=== PATIENT | female | born 1940 | race Caucasian/White ===

== ENCOUNTER 2021-10-11 07:57 | Emergency (ER) | payer MEDICARE, OTHER ==
[~2021-10-11] VITALS: Ht 162.6 cm; Wt 65.0 kg
[~2021-10-11 07:57] MED LIST: APIX5TAB PO; ATOR20TA58 PO; DILT120C99 PO; DOCU-109 PO; Diclofenac Sodium TP; FAMO20TA5 PO; FERR325T72 PO; LOSA25TA54 PO; OXYC1TAB15 PO
--- NOTE | 2021-10-11 08:54 | RAD ---
EXAMINATION: US BILATERAL LOWEREXTREMITY VENOUS DOPPLER (LOWER EXTREMITY VENOUS ULTRASOUND) CLINICAL HISTORY: Left greater than right lower extremity edema TECHNIQUE: Sonographic grayscale images obtained of the bilateral lower extremity deep venous systems with color flow Doppler, compression, and augmentation techniques as indicated. Images obtained and stored in a permanent archive. COMPARISON: None FINDINGS: RIGHT: No evidence of absent flow or incompressibility within the common femoral vein, femoral vein, or popl iteal vein. Visualized calf veins appear patent on limited evaluation. LEFT: No evidence of absent flow or incompressibility within the common femoral vein, femoral vein, or popl iteal vein. Visualized calf veins appear patent on limited evaluation. IMPRESSION: No evidence of bilateral lower extremity DVT. Electronically signed by: Ramirez Duron DO (10/11/2021 8:52 AM) [id number]
--- NOTE | 2021-10-11 09:26 | PHYS DOC ---
Past Medical History Past Medical History: No Pertinent History Past Surgical History: Hip Replacement, Other Additional Past Surgical Histo: mastectomy Smoking Status: Never Smoker Alcohol Use: None Drug Use: None General Adult EDM: Chief Complaint: LOWER EXT PAIN HPI: HPI: Patient is a 81 year old female history of dementia, atrial fibrillation on Eliquis, stroke with left-sided hemiplegia who presents with lower extremity edema. States that she has noticed her left leg has been swelling much more than her right. But does note that both legs have been swelling. Initially when asked if she has chest pain she states she was unsure, but later states that maybe she had some chest pain last night. Was unable to describe it. Denies shortness of breath. Denies orthopnea. Denies fever/chills. Denies cough, runny nose, sore throat. Review of Systems: Review of Systems: Constitutional: Denies fever or chills. [] Eyes: Denies change in visual acuity. [] HENT: Denies nasal congestion or sore throat. [] Respiratory: Denies cough or shortness of breath. [] Cardiovascular: Reports? Chest pain, and bilateral lower extremity edema L>R GI: Denies abdominal pain, nausea, vomiting, bloody stools or diarrhea. [] : Denies dysuria. [] Musculoskeletal: Denies back pain or joint pain. [] Integument: Denies rash. [] Neurologic: Denies headache, focal weakness or sensory changes. [] Endocrine: Denies polyuria or polydipsia. [] Lymphatic: Denies swollen glands. [] Psychiatric: Denies depression or anxiety. [] Heart Score: C/O Chest Pain: Yes HEART Score for Chest Pain: HEART Score for Chest Pain Response (Comments) Value History Slighlty/Non-Suspicious 0 ECG Normal 0 Age > 65 2 Risk Factors 1 or 2 Risk Factors 1 Total 3 Risk Scores: Score 0 - 3: 2.5% MACE over next 6 weeks - Discharge Home Score 4 - 6: 20.3% MACE over next 6 weeks - Admit for Clinical Observation Allergies: Allergies: Allergies Coded Allergies Type Severity Reaction Last Updated Verified No Known Drug Allergies 08/03/21 No Physical Exam: PE: Constitutional: Well developed, well nourished, no acute distress, non-toxic appearance. [] HENT: Normocephalic, atraumatic, bilateral external ears normal, oropharynx moist, no oral exudates, nose normal. [] Eyes: PERRLA, EOMI, conjunctiva normal, no discharge. [] Neck: Normal range of motion, no tenderness, supple, no stridor. [] Cardiovascular:Heart rate regular rhythm, no murmur [] Lungs & Thorax: Bilateral breath sounds clear to auscultation. No crackles. [] Abdomen: Bowel sounds normal, soft, no tenderness, no masses, no pulsatile masses. [] Skin: Warm, dry, no erythema, no rash. [] Back: No tenderness, no CVA tenderness. [] Extremities: Bilateral lower extremity edema, pitting, left greater than right. Extends to the level of the knee. Neurologic: Alert and oriented to person and place, difficulty with recalling details, bilateral lower extremity weakness L > R (at baseline) Current Patient Data: Vital Signs: Vital Signs Date Time Temp Pulse Resp B/P (MAP) Pulse Ox O2 Delivery O2 Flow Rate FiO2 10/11/21 08:10 98.1 60 15 162/72 (102) 99 Room Air 98.1 EKG: EKG: Sinus rhythm. Rate 64. Left axis deviation. QTc 460. KS and QRS intervals normal. No acute ischemic changes. [] Radiology/Procedures: Radiology/Procedures: [] Impression: [facility] [address] [place] [address] IMAGING REPORT Signed PATIENT: SERGIO BAUTISTA AACCOUNT: [id number] : 1940 LOCATION: ER AGE: 81 SEX: F EXAM STATUS: REG ER ORD. PHYSICIAN: RENATA GEORGE MD REASON: L > R leg swelling PROCEDURE: VENOUS LOWER EXT BILATERAL EXAMINATION: US BILATERAL LOWEREXTREMITY VENOUS DOPPLER (LOWER EXTREMITY VENOUS ULTRASOUND) CLINICAL HISTORY: Left greater than right lower extremity edema TECHNIQUE: Sonographic grayscale images obtained of the bilateral lower extremity deep venous systems with color flow Doppler, compression, and augmentation techniques as indicated. Images obtained and stored in a permanent archive. COMPARISON: None FINDINGS: RIGHT: No evidence of absent flow or incompressibility within the common femoral vein, femoral vein, or popliteal vein. Visualized calf veins appear patent on limited evaluation. LEFT: No evidence of absent flow or incompressibility within the common femoral vein, femoral vein, or popliteal vein. Visualized calf veins appear patent on limited evaluation. IMPRESSION: No evidence of bilateral lower extremity DVT. Electronically signed by: Ramirez Yi DO (10/11/2021 8:52 AM) [id number] DICTATED and SIGNED BY: RAMIREZ YI DO DATE: 10/11/21 [id number] [facility] [address] [place] [address] IMAGING REPORT Signed PATIENT: SERGIO BAUTISTA AACCOUNT: [id number] : 1940 LOCATION: ER AGE: 81 SEX: F EXAM STATUS: REG ER ORD. PHYSICIAN: RENATA GEORGE MD REASON: lower extremity edema, chest pain PROCEDURE: CHEST AP ONLY XR CHEST 1V History: Lower extremity edema, chest pain Comparison: 08/03/2021 Technique: Portable AP radiograph of the chest. Findings: Lungs are adequately inflated. No airspace consolidation, pleural effusion or pneumothorax. The cardiac silhouette and pulmonary vasculature are within normal limits. Tortuous aorta. Severe degenerative changes in the shoulders with high riding humeral heads compatible with rotator cuff tears. Left axillary surgical clips and right upper quadrant cholecystectomy clips. Impression: 1. No acute cardiopulmonary process. Electronically signed by: Trey Siegel MD (10/11/2021 10:06 AM) [id number] DICTATED and SIGNED BY: TREY SIEGEL MD DATE: 10/11/21 [id number] 0 Course & Med Decision Making: Course & Med Decision Making Pertinent Labs and Imaging studies reviewed. (See chart for details) Patient is 81-year-old female with history of dementia, A. fib on Eliquis who presents with lower extremity edema left greater than right, and potentially now resolved chest pain although she does not recall the specifics. On arrival is afebrile, hemodynamically stable. Well-appearing on examination. Does have pitting edema to the level of the knee, with the left more prominent than right. Likely due to her left-sided hemiplegia. EKG is nonischemic. Given timing of pain a single troponin should be sufficient to rule out ACS. If troponin is negative, feel that she would be safe for outpatient follow-up of her chest pain. DVT study negative. Awaiting labs and CXR. 09 CXR clear. CBC, CMP reassuring. Awaiting trop and BNP. 1013 Trop and BNP normal. No evidence of new onset heart failure. Appears to be isolated lower extremity edema. Feel she is safe for outpatient follow-up at this time. 1036 Jose Disclaimer: Jose Disclaimer: This electronic medical record was generated, in whole or in part, using a voice recognition dictation system. Departure Departure Impression: Primary Impression: Lower extremity edema Disposition: HOME / SELF CARE / HOMELESS Condition: STABLE Referrals: NON,STAFF (PCP) Additional Instructions: Your work-up did not show any evidence of blood clots in your legs, fluid in your lungs, heart failure. It appears to be isolated swelling in the legs. Please follow-up with your primary care doctor to discuss management of this. Usually it is with diuretics. If you develop chest pain, shortness of breath, shortness of breath with lying flat, or other new/concerning symptoms you can return to the emergency department for reevaluation at any time. RENATA GEORGE MD Oct 11, 2021 09:26
[2021-10-11 09:44] LABS: BASO % 1 % (0-3); EOS # 0.1 x10^3/uL (0.0-0.7); EOS % 2 % (0-3); HEMATOCRIT 38.4 % (36.0-47.0); HEMOGLOBIN 12.6 g/dL (12.0-15.5); LYMPH # 1.3 x10^3/uL (1.0-4.8); LYMPH % 28 % (24-48); MEAN CORPUSCULAR HEMOGLOBIN 29 pg (25-35); MEAN CORPUSCULAR HGB CONC 33 g/dL (31-37); MEAN CORPUSCULAR VOLUME 88 fL (79-100); MONO # 0.4 x10^3/uL (0.0-1.1); MONO % 8 % (0-9); NEUT % 62 % (31-73); PLATELET COUNT 254 x10^3/uL (140-400); RED BLOOD COUNT 4.36 x10^6/uL (3.50-5.40); RED CELL DISTRIBUTION WIDTH 15.1 % (11.5-14.5); WHITE BLOOD COUNT 4.8 x10^3/uL (4.0-11.0)
[2021-10-11 10:06] LABS: CREATININE 0.6 mg/dL (0.6-1.0); GFR 96.4; POTASSIUM 3.6 mmol/L (3.5-5.1)
--- NOTE | 2021-10-11 10:08 | RAD ---
XR CHEST 1V History: Lower extremity edema, chest pain Comparison: 08/03/2021 Technique: Portable AP radiograph of the chest. Findings: Lungs are adequately inflated. No airspace consolidation, pleural effusion or pneumothorax. The cardi ac silhouette and pulmonary vasculature are within normal limits. Tortuous aorta. Severe degenerative changes in the shoulders with high riding humeral heads compatible with rotator cuff tears. Left axi llary surgical clips and right upper quadrant cholecystectomy clips. Impression: 1. No acute cardiopulmonary process. Electronically signed by: Trey Mccray MD (10/11/2021 10:06 AM) [id number]
[2021-10-11 10:11] LABS: ALBUMIN 3.5 g/dL (3.4-5.0); ALBUMIN/GLOBULIN RATIO 1.1 (1.0-1.7); TOTAL BILIRUBIN 0.4 mg/dL (0.2-1.0); TOTAL PROTEIN 6.8 g/dL (6.4-8.2)
[2021-10-11 12:00] VITALS: BP 162/81
--- NOTE | 2021-10-11 13:07 | EKG ---
[facility] [address] [place] [address] Test Date: 2021-10-11 Test Time: 08:09:44 Pat Name: SERGIO BAUTISTA Department: Room: Gender: F Registered Sales Assistant: : 1940 Requested By: RENATA GEORGE Order Number: [id number] Reading MD: Danny Daley MD Measurements Intervals [place] Rate: 64 P: 267 MI: 160 QRS: -17 QRSD: 84 T: 74 QT: 446 QTc: 460 Interpretive Statements SR Electronically Signed On 10-13-2021 20:53:20 SAP BW DEVELOPER by Danny Daley MD
== END 2021-10-11 13:24 | disposition home or self-care (01) ==
LOC: ER 07:57
DX: R60.0 Localized edema (principal); F03.90 Unspecified dementia, unspecified severity, without behavioral disturbance, psychotic disturbance, mood disturbance, and anxiety; I48.91 Unspecified atrial fibrillation; Z79.01 Long term (current) use of anticoagulants
CPT/HCPCS: 36415; 71045; 80053; 83880; 84484; 85025; 93005; 93970; 99285-25

== ENCOUNTER 2021-11-17 12:18 | Emergency (ER) | payer MEDICARE, OTHER ==
[~2021-11-17] VITALS: Ht 157.5 cm; Wt 61.3 kg
--- NOTE | 2021-11-17 12:27 | PHYS DOC ---
Past Medical History Past Medical History: No Pertinent History Past Surgical History: Hip Replacement, Other Additional Past Surgical Histo: mastectomy Smoking Status: Never Smoker Alcohol Use: None Drug Use: None General Adult HPI: HPI: Patient is a 81 year old female brought in by EMS at the request of her family for evaluation of a scalp contusion after falling. The fall was reportedly unwitnessed. The patient is not supposed to ambulate, she is essentially wheelchair-bound, but she frequently forgets to call for assistance. She fell forward and hit her head. There is no reported loss of consciousness. She lives at a care facility. Her daughter reports no acute mental status changes. The patient has chronic confusion and dementia, and this is her baseline mental status here today. The patient denies any physical pain or discomfort. She denies headache, dizziness, chest pain, dyspnea, palpitations, abdominal pain, nausea or vomiting. She denies acute vision loss. She has a bruise on her left forehead. The patient takes Eliquis and has a history of atrial fibrillation. No previous known history of serious GI bleeding or intracranial hemorrhage. She does fall very frequently. The patient has bilateral knee pain, which is also unchanged for her. Her daughter wants her hips and pelvis x-rayed as well. The patient is not complaining of any hip or pelvis pain. Review of Systems: Review of Systems: Constitutional: Denies fever or chills. [] Eyes: Denies change in visual acuity. [] HENT: Denies nasal congestion or sore throat. [] Respiratory: Denies cough or shortness of breath. [] Cardiovascular: Denies chest pain. Chronic lower extremity edema, unchanged. GI: Denies abdominal pain, nausea, vomiting Musculoskeletal: Chronic bilateral knee pain, unchanged. Integument: Denies rash. Bruising of the left forehead. Neurologic: Denies headache, focal weakness or sensory changes. Chronic memory loss, unchanged. Psychiatric: Denies depression or anxiety. [] Heart Score: C/O Chest Pain: No Risk Factors: Risk Factors: DM, Current or recent (<one month) smoker, HTN, HLP, family history of CAD, obesity. Risk Scores: Score 0 - 3: 2.5% MACE over next 6 weeks - Discharge Home Score 4 - 6: 20.3% MACE over next 6 weeks - Admit for Clinical Observation Score 7 - 10: 72.7% MACE over next 6 weeks - Early Invasive Strategies Allergies: Allergies: Allergies Coded Allergies Type Severity Reaction Last Updated Verified No Known Drug Allergies 10/11/21 No Physical Exam: PE: Constitutional: Well developed, well nourished, no acute distress, non-toxic appearance. [] HENT: Normocephalic. She has a moderate sized contusion of her left frontal scalp. There is no significant hematoma or significant soft tissue swelling associated with this. No tenderness to palpation. No palpable crepitus or step-offs. TMs are clear bilaterally, no hemotympanum. No otorrhea. Nares are patent without rhinorrhea epistaxis. No facial trauma otherwise noted. Mucous membranes are moist. No oral or denture trauma. Eyes: PERRL, EOMI, conjunctiva normal, no discharge. [] Neck: Normal range of motion, no tenderness, supple, no stridor. Trachea is midline. No midline tenderness or step-offs. Cardiovascular:Heart rate regular rhythm, +2 posterior tibial and +2 radial pulses bilaterally Lungs & Thorax: Bilateral breath sounds clear to auscultation [] Abdomen: Abdomen is soft, nondistended, nontender to palpation Skin: She has a moderate sized circular contusion of her left forehead. No significant associated swelling or hematoma. No open wounds. Back: No tenderness, no CVA tenderness. [] Extremities: Pelvis is stable. No tenderness of either hip. Bilateral anterior nears are both tender. She has mild soft tissue tenderness of her mid and distal left femur. There is no shortening or deformity of the bilateral lower extremities. No calf tenderness. No palpable crepitus or step-offs. No ankle or foot tenderness. She has bilateral, symmetric lower extremity 1+ edema. No ligamentous laxity is noted of either knee. There is some painful active left knee flexion. There are no limb deformities noted. Neurologic: She is awake, alert, oriented to person, she knows she is in the hospital, she is confused about date and time, this is baseline for her. She follows all commands. No facial asymmetry is noted. She moves all 4 extremit ies equally. Generalized but symmetric bilateral lower extremity weakness, chronic for her. Speech is clear and fluent. Psychologic: Affect normal, judgement normal, mood normal. She is pleasant and cooperative EKG: EKG: [] Radiology/Procedures: Radiology/Procedures: IMAGING REPORT Signed PATIENT: SERGIO BAUTISTA AACCOUNT: [id number] : 1940 LOCATION: ER AGE: 81 SEX: F EXAM STATUS: REG ER ORD. PHYSICIAN: AJIT DELGADILLO DO REASON: fall, scalp contusion PROCEDURE: CT HEAD AND CERVICAL SPINE WO Examination: CT head and cervical spine without contrast. CT HEAD INDICATION: Reason: fall, scalp contusion / Spl. Instructions: / History: COMPARISON: None Available. Exposure: One or more of the following individualized dose reduction techniques were utilized for this examination: 1. Automated exposure control 2. Adjustment of the mA and/or kV according to patient size 3. Use of iterative reconstruction technique TECHNIQUE: 5 mm contiguous axial images were obtained from the skull base to the vertex in both bone and soft tissue algorithm. FINDINGS: No abnormal attenuation within the brain parenchyma. No evidence of acute intracranial hemorrhage. No extra-axial fluid collections. No mass effect or midline shift. Ventricular size is appropriate. Basal cisterns are patent. No fractures identified.Arceo-white differentiation is preserved.Globes and orbits are within normal limits. Paranasal sinuses and mastoid air cells are clear. CT CERVICAL SPINE INDICATION: Reason: fall, scalp contusion / Spl. Instructions: / History: COMPARISON: None Available. Technique: 2.5 mm contiguous axial images were obtained from the skull base through the cervicothoracic junction in both bone and soft tissue algorithm. Additional sagittal and coronal reconstructions were also performed. FINDINGS: Vertebral body height and alignment are maintained. Cervical lordosis is preserved. The lateral masses of C1 are aligned upon C2. No fractures identified. The bony canal is patent throughout. Moderate intervertebral disc height loss cervical spine throughout likely degenerative changes most at C6-C7 levels. The paraspinous soft tissues are unremarkable. Visualized intracranial contents are unremarkable. Lung apices are clear. IMPRESSION: 1. No acute intracranial findings. 2. No acute fracture of the cervical spine. 3. Moderate degenerative changes cervical spine. Electronically signed by: Jere Lion MD (11/17/2021 2:21 PM) [id number] DICTATED and SIGNED BY: JERE LION MD DATE: 11/17/21 [id number] 0 IMAGING REPORT Signed PATIENT: SERGIO BAUTISTA AACCOUNT: [id number] : 1940 LOCATION: ER AGE: 81 SEX: F EXAM STATUS: REG ER ORD. PHYSICIAN: AJIT DELGADILLO DO REASON: fall PROCEDURE: PELVIS AP pelvis radiograph 11/17/2021 CLINICAL HISTORY: Fall with pelvic pain. An AP digital radiograph of the pelvis and both hips was obtained. Comparison study is dated 08/03/2021. The patient is post left hip replacement. There is diffuse osteopenia of the visualized bony structures. 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 The right femoral head is eroded and the proximal right femur is significantly displaced superiorly articulating with a neoacetabulum involving the mid right ilium. These findings are unchanged. No acute pelvic bone fracture is seen. Degenerative changes are seen involving both SI joints. IMPRESSION: No acute osseous abnormality is seen. Electronically signed by: Gage Crocker MD (11/17/2021 2:26 PM) [id number] DICTATED and SIGNED BY: GAGE CROCKER MD DATE: 11/17/21 [id number] 0 IMAGING REPORT Signed PATIENT: SERGIO BAUTISTA AACCOUNT: [id number] : 1940 LOCATION: ER AGE: 81 SEX: F EXAM STATUS: REG ER ORD. PHYSICIAN: AJIT DELGADILLO DO REASON: fall PROCEDURE: KNEE BILAT 3V Bilateral 3 view knee radiographs 11/17/2021 CLINICAL HISTORY: Fall with injury to both knees. AP, oblique and crosstable lateral digital radiographs of both knees were obtained. There is diffuse osteopenia of the visualized bony structures. No fracture or dislocation of either knee is seen. Moderate to severe degenerative changes are seen involving all 3 compartments of both knees. IMPRESSION: No fracture or dislocation of either knee is seen. Electronically signed by: Gage Crocker MD (11/17/2021 2:29 PM) [id number] DICTATED and SIGNED BY: GAGE CROCKER MD DATE: 11/17/21 [id number] 0 IMAGING REPORT Signed PATIENT: SERGIO BAUTISTA AACCOUNT: [id number] : 1940 LOCATION: ER AGE: 81 SEX: F EXAM STATUS: REG ER ORD. PHYSICIAN: AJIT DELGADILLO DO REASON: fall PROCEDURE: FEMUR LEFT 2 VIEW AP and lateral left femur radiographs 11/17/2021 CLINICAL HISTORY: Left femur pain. Fall. 2 AP and 2 lateral digital radiographs of the left femur were obtained. The tala ent is post left FRIDA. There is diffuse osteopenia of the visualized bony structures. No fracture or dislocation of the left femur is seen. IMPRESSION: No fracture or dislocation of the left femur is seen. Electronically signed by: Gage Crocker MD (11/17/2021 2:36 PM) [id number] DICTATED and SIGNED BY: GAGE CROCKER MD DATE: 11/17/21 [id number] 0 Course & Med Decision Making: Course & Med Decision Making Pertinent Labs and Imaging studies reviewed. (See chart for details) The patient declines any pain medication at this time. CT and x-ray imaging unremarkable for any acute life-threatening process. I discussed all of the findings, differential diagnosis and plan of care with the patient as well as with her daughter. Both feel comfortable with her returning back to her care facility. I recommend that the patient and her daughter speak with her group controller about alternative treatments for anticoagulation with her atrial fibrillation, secondary to multiple falls and fall risk. There is no current indication for further invasive exams or imaging or admission at this time based on current clinical presentation. I reminded the patient to please notify the staff when she needs to get up in the future, so as to avoid falls. Strict return precautions are given. All parties verbalized understanding. Jose Disclaimer: Jose Disclaimer: This electronic medical record was generated, in whole or in part, using a voice recognition dictation system. Departure Departure Impression: Primary Impression: Fall Additional Impressions: Scalp contusion Anticoagulated Dementia Bilateral knee pain Disposition: 03 HALFWAY FACILITY Condition: STABLE Referrals: NON,STAFF (PCP) Patient Instructions: Facial or Scalp Contusion, Fall Prevention and Home Safety Additional Instructions: Please return to the ER for new injury or trauma, for more severe pain, focal weakness, chest pain, shortness of breath, uncontrolled vomiting or for any other concerns. Your x-rays do not show any evidence of a broken bone or fracture. Your CAT scan does not show any evidence of skull fracture or internal bleeding on your brain. Your spine does not show any evidence of fracture. Please discuss your fall issues further with your primary care doctor and group controller. Due to your blood thinning medication, for recurrent falls, you are at increased risk for serious internal bleeding. Please be sure to ask for help when you need to get up, to try to prevent falls. AJIT DELGADILLO DO Nov 17, 2021 12:27
--- NOTE | 2021-11-17 14:24 | RAD ---
Examination: CT head and cervical spine without contrast. CT HEAD INDICATION: Reason: fall, scalp contusion / Spl. Instructions: / History: COMPARISON: None Available. Exposure: One or more of the following individualized dose reduction techniques were utilized for thi s examination: 1. Automated exposure control 2. Adjustment of the mA and/or kV according to patient size 3. Use of iterative reconstruction technique TECHNIQUE: 5 mm contiguous axial images were obtained from the skull base to the vertex in both bone and soft tissue algorithm. FINDINGS: No abnormal attenuation within the brain parenchyma. No evidence of acute intracranial hemorrhage. No extra-axial fluid collections. No mass effect or midline shift. Ventricular size is appropriate. Basal cisterns are patent. No fractures identified.Arceo-white differentiation is preserved.Globes and orbits are within normal l imits. Paranasal sinuses and mastoid air cells are clear. CT CERVICAL SPINE INDICATION: Reason: fall, scalp contusion / Spl. Instructions: / History: COMPARISON: None Available. Technique: 2.5 mm contiguous axial images were obtained from the skull base through the cervicothorac ic junction in both bone and soft tissue algorithm. Additional sagittal and coronal reconstructions were also performed. FINDINGS: Vertebral body height and alignment are maintained. Cervical lordosis is preserved. The l ateral masses of C1 are aligned upon C2. No fractures identified. The bony canal is patent throughout. Moderate intervertebral disc height loss cervical spine throughout likely degenerative changes most a t C6-C7 levels. The paraspinous soft tissues are unremarkable. Visualized intracranial contents are unremarkable. L rosalind apices are clear. IMPRESSION: 1. No acute intracranial findings. 2. No acute fracture of the cervical spine. 3. Moderate degenerative changes cervical spine. Electronically signed by: Jere Lion MD (11/17/2021 2:21 PM) [id number]
--- NOTE | 2021-11-17 14:29 | RAD ---
AP pelvis radiograph 11/17/2021 CLINICAL HISTORY: Fall with pelvic pain. An AP digital radiograph of the pelvis and both hips was obtained. Comparison study is dated . The patient is post left hip replacement. There is diffuse osteopenia of the visualized bony struc tures. 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 The right femoral head is eroded and the proxima l right femur is significantly displaced superiorly articulating with a neoacetabulum involving the m id right ilium. These findings are unchanged. No acute pelvic bone fracture is seen. Degenerative karina nges are seen involving both SI joints. IMPRESSION: No acute osseous abnormality is seen. Electronically signed by: Gage Crocker MD (11/17/2021 2:26 PM) [id number]
--- NOTE | 2021-11-17 14:32 | RAD ---
Bilateral 3 view knee radiographs 11/17/2021 CLINICAL HISTORY: Fall with injury to both knees. AP, oblique and crosstable lateral digital radiographs of both knees were obtained. There is diffuse osteopenia of the visualized bony structures. No fracture or dislocation of either knee is seen. 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 IMPRESSION: No fracture or dislocation of either knee is seen. Electronically signed by: Gage Crocker MD (11/17/2021 2:29 PM) [id number]
--- NOTE | 2021-11-17 14:38 | RAD ---
AP and lateral left femur radiographs 11/17/2021 CLINICAL HISTORY: Left femur pain. Fall. 2 AP and 2 lateral digital radiographs of the left femur were obtained. The patient is post left FRIDA. There is diffuse osteopenia of the visualized bony structures. No fracture or dislocation of the lef t femur is seen. IMPRESSION: No fracture or dislocation of the left femur is seen. Electronically signed by: Gage Crocker MD (11/17/2021 2:36 PM) [id number]
[2021-11-17 15:06] VITALS: BP 153/65
== END 2021-11-17 14:32 ==
LOC: ER 12:18
DX: S00.03XA Contusion of scalp, initial encounter (principal); F03.90 Unspecified dementia, unspecified severity, without behavioral disturbance, psychotic disturbance, mood disturbance, and anxiety; M25.562 Pain in left knee; M25.561 Pain in right knee; W18.09XA Striking against other object with subsequent fall, initial encounter; Y93.89 Activity, other specified; Y92.89 Other specified places as the place of occurrence of the external cause; Y99.8 Other external cause status
CPT/HCPCS: 70450; 72125; 72170; 73552; 73562-50; 99285-25